=== PATIENT | male | born 1955 | race Caucasian/White ===

== ENCOUNTER 2020-03-30 06:29 | Day surgery (SDC) | payer BC ==
[~2020-03-30] VITALS: Ht 180.3 cm; Wt 81.6 kg
--- NOTE | ~2020-03-30 | O ---
[facility] [place] [address] OPERATIVE REPORT Name: KELSEA POLLOCK Room #: 150-4 [facility]#: [id number] Admission: 03/30/20 Attend Phys: Sabas Wolf MD Discharge: Date of : 57 Report #: [id number] THIS REPORT FOR: cc: Avery Neil MD,Avery Wolf,Sabas Agarwal MD ~ CC: Avery Wolf DATE OF SERVICE: 03/30/2020 PREOPERATIVE DIAGNOSIS: Right upper lid lesion. POSTOPERATIVE DIAGNOSIS: Right upper lid lesion. PROCEDURE: Excision of lesion of right upper lid with frozen sections and myocutaneous flap repair of defect. SURGEON: Sabas Wolf MD [employer] MACHINE OPERATOR: None. ANESTHESIA: MAC. COMPLICATIONS: None. INDICATIONS FOR SURGERY: This pleasant 65-year-old gentleman has a nodular lesion in his right upper lid that has been treated for many, many months conservatively with medical therapy, presuming that the lesion was inflammatory in nature. Because of the failure of the lesion to improve with appropriate therapy, a concern has arisen that the lesion may actually represent a neoplasm such as a sebaceous cell carcinoma. He presents today for excision of this lesion with frozen sections and subsequent repair of that defect. 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 DESCRIPTION OF PROCEDURE: The patient was taken to the operating room where 2% Xylocaine with epinephrine mixed with equal parts of 0.75% Marcaine with Wydase was administered transcutaneously and transconjunctivally to the right upper lid, the right brow, the right lateral canthus and the right infratemporal fossa. The patient was subsequently prepped and draped in the usual sterile fashion. A fine tip skin marking pen was then utilized to outline the lesion in [address] [address] OPERATIVE REPORT Name: KELSEA POLLOCK Room #: 150-4 [facility]#: [id number] Admission: 03/30/20 Attend Phys: Sabas Wolf MD Discharge: Date of : 57 Report #: [id number] the central right upper lid. The incisions were then made perpendicularly across the eyelid margin and drawn to a point at the arcus marginalis. Hemostasis was achieved in the field with diligent pinpoint monopolar cautery. The pathologist snap froze that tissue. She felt that the lesion had been completely excised based on clear margins and favored a benign diagnosis. A myocutaneous flap was then developed laterally to rotate in and correct the defect. Hemostasis was then re-achieved. The flap was then advanced and secured with multiple interrupted buried 5-0 Vicryl sutures. The tarsal plate was reapproximated with interrupted 5-0 Vicryl sutures. The eyelid margin was then reapproximated with interrupted 7-0 Vicryl sutures. The skin and more superficial subcutaneous structures were then closed with interrupted Vicryl sutures followed by a final closure of 6-0 plain gut sutures. The wounds were then cleaned and dressed with erythromycin ointment. The patient subsequently transported to the recovery area having tolerated the procedures well with no anesthetic or operative complications being noted. By: [id number] Sabas Wlof MD /nt
[~2020-03-30 06:29] MED LIST: ASA81BEC PO; BUSPIRONE HCL5 MG PO; CARVEDILOL25 MG PO; DOXYCYCLINE HYC50 MG PO; FLOMAX0.4 MG PO; HUMALOG100 UNIT/1; HYDROCHLOROTH12.5 M2 PO; ISRADIPINE2.5 MG PO; LATANOPROST 0.2.5 ML OPHTHALMIC; LIPITOR 10 MG10 M1 PO; LYRICA 50 MG50 MG PO; METANX CAPSULE1 EACH PO; ZESTRIL40 MG PO
[2020-03-30 08:02] VITALS: BP 147/76
--- NOTE | 2020-03-31 17:08 | PATH ---
[address] [address] PATHOLOGY RPT PROCEDURE Name: KELSEA POLLOCK Room #: DEP [facility]#: [id number] Admission: 03/30/20 Date of : 57 Discharge: 03/30/20 Report #: [id number] Path Case #: [id number] [facility] Accession Number: [id number] . 01 Material submitted: . lid - LESION RIGHT UPPER LID - FS. Modifiers: right, upper . 02 Frozen section diagnosis: . FROZEN SECTION DIAGNOSIS (Marianna Linares MD) . FSA1, Skin, lesion right upper lid, excision: - Dermal and squamoid lesion surrounded by exuberant giant cell reaction and acute inflammation. - Negative for invasive carcinoma at margins. . These findings are discussed with Dr. Sabas Wolf and a written report is placed in the patient's chart. . Frozen section performed at [facility], [address] [place], [place] [address], [place] [address]. . . . GROSS DESCRIPTION The specimen is received fresh from the OR labeled with the patient's name, "lesion right upper lid", and consists of an inverted, triangular excision of skin measuring 1.2 cm from base to height, and 1 cm approximately from side to side. The base measures 1 cm as well. The thickness of the specimen is 0.5 cm. The specimen is oriented as superior, medial, inferior and lateral by Dr. Wolf, those margins are inked as follows: superior to medial to inferior inked red and the deep margin is inked black, the infero-lateral margin is inked blue and the supero-lateral margin is inked green. There are eyelashes present at the inferior end of the specimen that is the base of the specimen. At this point, the specimen is serially sectioned into four pieces and submitted entirely for frozen section as FSA1, this is subsequently submitted for permanent sections as A1. (IUV:sandra; 03/30/2020) . . IZV/QMS . 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 [address] [address] PATHOLOGY RPT PROCEDURE Name: KELSEA POLLOCK Room #: DEP [facility] Von[facility].#: [id number] Admission: 03/30/20 Date of : 57 Discharge: 03/30/20 Report #: [id number] Path Case #: [id number] - Negative for malignancy. . (IUV:mml; 03/31/2020) QLM 03/31/2020 1601 Local . 02 Comment: Dr. Viki Monroe (board certified dermatopathologist) has seen customer response representative slides of this case and concurs with my diagnosis. . (IUV:mml; 03/31/2020) . 02 Electronically signed: . Marianna Linares MD, Pathologist NPI- [id number] . 01 Gross description: . PLEASE SEE GROSS DESCRIPTION UNDER FROZEN SECTION DIAGNOSIS. /QMS 03/30/2020 1420 Local . 02 Pathologist provided ICD-10: H00.11 . 02 CPT . 345688, [id number] Specimen Comment: A courtesy copy of this report has been sent to [phone] Specimen Comment: [phone] Specimen Comment: Report sent to / DR PATE Performed at: 01 [facility] [address] [place] [address] [address], [place], [place] [id number] MD Boby Luong MD Phone: [phone] Performed at: [address] [id number] MD Marianna Linares MD Phone: [phone]
== END 2020-03-30 09:40 | disposition home or self-care (01) ==
LOC: TBA 06:29 → OR 06:29
DX: H00.11 Chalazion right upper eyelid (principal); L92.8 Other granulomatous disorders of the skin and subcutaneous tissue; I10 Essential (primary) hypertension; E11.9 Type 2 diabetes mellitus without complications; E78.00 Pure hypercholesterolemia, unspecified; F41.9 Anxiety disorder, unspecified; H40.9 Unspecified glaucoma; Z90.49 Acquired absence of other specified parts of digestive tract; Z87.891 Personal history of nicotine dependence; Z98.890 Other specified postprocedural states; Z79.899 Other long term (current) drug therapy
CPT/HCPCS: 50010; 50101; 50398; 51636; 56528; 56531; 62110; 62850; 70005